=== PATIENT | male | born 1995 | race Caucasian/White ===

== ENCOUNTER 2019-07-26 01:38 | Emergency (ER) | payer BC ==
--- NOTE | 2019-07-26 02:05 | EDM.PDOC ---
ED HPI GENERAL MEDICAL PROBLEM - General Chief Complaint: Genitourinary Problem Stated Complaint: TESTICULAR PAIN Time Seen by Provider: 07/26/19 02:01 - History of Present Illness INITIAL COMMENTS - FREE TEXT/NARRATIVE: 24-year-old male presents the emergency room with testicular pain. This pain started this afternoon the patient was walking [place] going down some steps and he felt a sharp pain in his left testicle. Patient has a significant history of having a left varicocelectomy this last spring. He has had intermittent discomfort since that time but nothing like today. Patient has not had any problems voiding. Denies any fevers or chills. He does not have problems sitting down. However, he does have a hard time getting comfortable since this reaggravated today. Left Scrotum Pain Score (Numeric/FACES): 7 - Related Data Allergies Allergy/AdvReac Type Severity Reaction Status Date / Time No Known Allergies Allergy Verified 07/26/19 01:50 Home Meds: Home Meds Meloxicam [Mobic] 15 mg PO DAILY 07/26/19 [History] Past Medical History - Past Health History Medical/Surgical History: Denies Medical/Surgical History - Past Surgical History HEENT Surgical History: Reports: Tonsillectomy Male Surgical History: Reports: Varicocele Resection Social & Family History - Family History Family Medical History: Noncontributory - Tobacco Use Smoking Status *Q: Current Every Day Smoker Years of Tobacco use: 11 Packs/Tins Daily: 0.5 - Caffeine Use Caffeine Use: Reports: Coffee - Recreational Drug Use Recreational Drug Use: No ED ROS GENERAL - Review of Systems Review Of Systems: See Below Constitutional: Reports: No Symptoms Respiratory: Reports: No Symptoms Cardiovascular: Reports: No Symptoms GI/Abdominal: Denies: Constipation, Diarrhea, Nausea, Vomiting : Denies: Discharge, Dysuria, Flank Pain, Frequency, Urgency, Urinary Retention Musculoskeletal: Reports: No Symptoms Skin: Reports: No Symptoms ED EXAM, RENAL/ - Physical Exam Exam: See Below Exam Limited By: No Limitations General Appearance: Alert, No Apparent Distress Head: Atraumatic, Normocephalic Neck: Normal Inspection, Supple, Non-Tender, Full Range of Motion Respiratory/Chest: Lungs Clear, Normal Breath Sounds, No Accessory Muscle Use Cardiovascular: Regular Rate, Rhythm, No Edema, No Murmur GI/Abdominal: Normal Bowel Sounds, Soft, Other (He has some mild suprapubic discomfort). No: Guarding, Rigid, Rebound (Male) Exam: Scrotum Tenderness (L), Testicular Tenderness (L). No: Hernia ( Clearly identifiable however this area is fairly tender with palpation), Inguinal Lymphadenopathy, Scrotal Swelling, Scrotum Tenderness (R), Suprapubic Fullness, Testicular Mass, Testicular Tenderness (R) Rectal (Males) Exam: Normal Exam, Normal Rectal Tone, Prostate Normal Back Exam: Normal Inspection, Full Range of Motion. No: CVA Tenderness (L), CVA Tenderness (R) Extremities: Normal Inspection, No Pedal Edema Course - Vital Signs Last Recorded V/S: Last Vital Signs Temp 36.6 C 07/26/19 01:46 Pulse 90 07/26/19 01:46 Resp 14 07/26/19 01:46 BP 143/70 H 07/26/19 01:46 Pulse Ox 100 07/26/19 01:46 - Orders/Labs/Meds Orders: Active Orders 24 hr Category Date Time Status Scrotum and Contents [US] Stat Exams 07/26/19 02:15 Taken Labs: Laboratory Tests 07/26/19 Range/Units 02:43 Urine Color [place] H (Yellow) Urine Appearance Clear (Clear) Urine pH 6.0 (5.0-8.0) Ur Specific [place] > or = 1.030 (1.005-1.030) Urine Protein 1+ H (Negative) Urine Glucose (UA) Negative (Negative) Urine Ketones 4+ H (Negative) Urine Occult Blood Negative (Negative) Urine Nitrite Negative (Negative) Urine Bilirubin 2+ H (Negative) Urine Urobilinogen 0.2 (0.2-1.0) Ur Leukocyte Esterase Negative (Negative) U Hyaline Cast (Auto) 0-5 (0-5) /lpf Urine RBC 0-5 (0-5) /hpf Urine WBC 0-5 (0-5) /hpf Ur Squamous Epith Cells 0-5 (0-5) /hpf Amorphous Sediment Few H (NOT SEEN) /hpf Urine Bacteria Moderate H (FEW) /hpf Urine Mucus Many H (FEW) /hpf - Re-Assessments/Exams Free Text/Narrative Re-Assessment/Exam: 07/26/19 03:52 Testicular ultrasound is normal. Urinalysis does not suggest a UTI prostate exam is normal. I cannot appreciate a hernia on exam however the patient does have some scar tissue present from his surgery last spring. I have recommended to the patient that he follow-up with surgery to get this rechecked. Departure - Departure Time of Disposition: 03:54 Disposition: Home, Self-Care 01 Clinical Impression: Testicular/scrotal pain - Discharge Information Referrals: PCP,None [Primary Care Provider] - Forms: ED Department Discharge Additional Instructions: Return to the emergency room with any questions problems or worsening symptoms. Use ibuprofen on a regular basis and see if this helps. Follow-up with the surgery clinic. [id number] Sepsis Event Note - Evaluation Sepsis Screening Result: No Definite Risk - Focused Exam Vital Signs: Vital Signs Temp Pulse Resp BP Pulse Ox 07/26/19 01:46 36.6 C 90 14 143/70 H 100 Date Exam was Performed: 07/26/19 Time Exam was Performed: 03:51 - My Orders Last 24 Hours: My Active Orders 07/26/19 02:15 Scrotum and Contents [US] Stat - Assessment/Plan Last 24 Hours: My Active Orders 07/26/19 02:15 Scrotum and Contents [US] Stat
--- NOTE | 2019-07-26 08:39 | US ---
Testicular ultrasound: Multiple real-time images of the testicles were obtained. Comparison: No previous testicular exam. Both testicles have a homogeneous ultrasound appearance. No intratesticular abnormality is seen. There appears to be a left-sided varicocele. Epididymis appear within normal limits. Both arterial and venous blood flow are seen within the testicles. Minimal fluid around the left testicle is seen. Measurements: Right testicle: 4.4 x 2.3 x 3.1 cm Left testicle: 3.5 x 1.8 x 2.7 cm Impression: 1. Small varicocele is noted on the left side. 2. Minimal fluid around the left testicle. 3. Testicular ultrasound is otherwise unremarkable. I agree with preliminary report issued by [facility] ([facility] report finalized on 07/26/19, 4:17 AM Central Time)
== END 2019-07-26 04:05 | disposition home or self-care (01) ==
LOC: JD.ED 01:38
DX: N50.812 Left testicular pain (principal); N50.82 Scrotal pain; F17.210 Nicotine dependence, cigarettes, uncomplicated
CPT/HCPCS: 76870; 76870-26; 81001; 93975; 99282; 99284-25